=== PATIENT | male | born 1975 | race Caucasian/White ===

== ENCOUNTER 2024-06-10 08:45 | Outpatient (REF) | payer BC, SELFPAY ==
[2024-06-10 09:29] LABS: Basophils Percent Auto 0.3 % (0-2); Eosinophils Absolute Auto 0.3 X10*3/uL (0.0-0.4); Eosinophils Percent Auto 4.2 % (0-4); Hematocrit 44.1 % (42.0-52.0); Hemoglobin 16.3 g/dl (14.0-18.0); Imm Gran Abs Auto 0.02 X10*3/uL (0.00-0.03); Imm Gran Pct Auto 0.3 % (0.0-0.4); Lymphocytes Absolute Auto 0.7 X10*3/uL (1.2-4.9); Lymphocytes Percent Auto 10.7 % (20-40); MANUAL DIFF FLAG NO; Mean Corpuscular Hemoglobin 30.9 pg (27.0-33.0); Mean Corpuscular Volume 83.5 fL (80.0-98.0); Mean Platelet Volume 10.1 fL (9.4-12.4); Monocytes Absolute Auto 0.6 X10*3/uL (0.1-1.2); Neutrophils Percent Auto 75.5 % (45-73); Platelet Count 206 X10*3/uL (160-400); Red Blood Count 5.28 X10*6/uL (4.60-5.80); Red Cell Distribution Width 12.1 % (11.0-16.0); White Blood Count 6.7 X10*3/uL (4.8-10.8)
[2024-06-10 10:56] LABS: Ferritin 380 ng/mL (20-250)
== END 2024-06-10 08:46 | disposition home or self-care (01) ==
LOC: HO.BBR 08:45
PROVIDERS: PCP Internal Medicine; Visit Provider Internal Medicine
DX: E83.110 Hereditary hemochromatosis (principal)
CPT/HCPCS: 36415; 82728; 85025

== ENCOUNTER 2024-08-08 08:28 | Outpatient (REF) | payer BC, SELFPAY ==
[2024-08-08 09:45] LABS: MANUAL DIFF FLAG NO
[2024-08-08 09:46] LABS: Basophils Percent Auto 0.1 % (0-2); Eosinophils Absolute Auto 0.2 X10*3/uL (0.0-0.4); Eosinophils Percent Auto 2.3 % (0-4); Hematocrit 46.8 % (42.0-52.0); Imm Gran Abs Auto 0.05 X10*3/uL (0.00-0.03); Imm Gran Pct Auto 0.5 % (0.0-0.4); Lymphocytes Absolute Auto 0.5 X10*3/uL (1.2-4.9); Lymphocytes Percent Auto 4.8 % (20-40); Mean Corpuscular HGB Conc 36.3 g/dl (31.0-36.0); Mean Corpuscular Hemoglobin 30.8 pg (27.0-33.0); Mean Corpuscular Volume 84.8 fL (80.0-98.0); Mean Platelet Volume 11.1 fL (9.4-12.4); Monocytes Absolute Auto 0.8 X10*3/uL (0.1-1.2); Monocytes Percent Auto 7.1 % (2-11); Neutrophils Percent Auto 85.2 % (45-73); Platelet Count 234 X10*3/uL (160-400); Red Blood Count 5.52 X10*6/uL (4.60-5.80); Red Cell Distribution Width 12.3 % (11.0-16.0); White Blood Count 10.6 X10*3/uL (4.8-10.8)
[2024-08-08 10:21] LABS: Ferritin 364 ng/mL (20-250)
== END 2024-08-08 08:29 | disposition home or self-care (01) ==
LOC: HO.BBR 08:28
PROVIDERS: PCP Internal Medicine; Visit Provider Internal Medicine
DX: E83.110 Hereditary hemochromatosis (principal)
CPT/HCPCS: 36415; 82728; 85025

== ENCOUNTER 2024-09-12 08:01 | Outpatient (REF) | payer BC, SELFPAY ==
[2024-09-12 08:58] LABS: MANUAL DIFF FLAG NO
[2024-09-12 09:23] LABS: Basophils Percent Auto 0.2 % (0-2); Eosinophils Absolute Auto 0.2 X10*3/uL (0.0-0.4); Eosinophils Percent Auto 3.1 % (0-4); Hematocrit 43.3 % (42.0-52.0); Hemoglobin 15.2 g/dl (14.0-18.0); Imm Gran Abs Auto 0.02 X10*3/uL (0.00-0.03); Imm Gran Pct Auto 0.3 % (0.0-0.4); Lymphocytes Absolute Auto 0.4 X10*3/uL (1.2-4.9); Lymphocytes Percent Auto 6.9 % (20-40); Mean Corpuscular HGB Conc 35.1 g/dl (31.0-36.0); Mean Corpuscular Hemoglobin 29.4 pg (27.0-33.0); Mean Corpuscular Volume 83.8 fL (80.0-98.0); Mean Platelet Volume 10.9 fL (9.4-12.4); Monocytes Absolute Auto 0.5 X10*3/uL (0.1-1.2); Monocytes Percent Auto 8.3 % (2-11); Neutrophils Absolute Auto 5.2 x10*3/uL (2.0-8.3); Neutrophils Percent Auto 81.2 % (45-73); Platelet Count 227 X10*3/uL (160-400); Red Blood Count 5.17 X10*6/uL (4.60-5.80); Red Cell Distribution Width 12.4 % (11.0-16.0); White Blood Count 6.4 X10*3/uL (4.8-10.8)
[2024-09-12 11:12] LABS: Ferritin 298 ng/mL (20-250)
== END 2024-09-12 08:02 | disposition home or self-care (01) ==
LOC: HO.BBR 08:01
PROVIDERS: PCP Internal Medicine; Visit Provider Internal Medicine
DX: E83.110 Hereditary hemochromatosis (principal)
CPT/HCPCS: 36415; 82728; 85025

== ENCOUNTER 2024-10-17 08:16 | Outpatient (REF) | payer BC, SELFPAY | END 2024-10-17 08:17 | disposition home or self-care (01) | LOC: HO.BBR 08:16 | PROVIDERS: PCP Internal Medicine; Visit Provider Internal Medicine | DX: Z13.89 Encounter for screening for other disorder (principal) ==

== ENCOUNTER 2024-11-14 08:03 | Outpatient (REF) | payer BC, SELFPAY ==
--- OUTSIDE RECORDS SUMMARY | 2024-11-14 08:08 | XMS_ITS | Clinical Summary ---
Author Organization [facility] Address [address] [place] [address] Care Team Providers Care Manager Medicaid Name Role Phone Unavailable Primary Care Provider Unavailabl e Social History Tobacco Use Types Packs/Day Years Used Date Smoking Tobacco: Never Assessed Sex and Gender Information Value Date Recorded Sex Assigned at Not on file Gender Identity Not on file Sexual Orientation Not on file Plan of Treatment Health Maintenance Due Date Last Done Comments Hepatitis B Vaccines (1 of 3 - 3-dose series) 1976 Hepatitis C Screening 1976 COVID-19 Vaccine (#1) 1976 Depression Screening 1988 Preventative Health Evaluation 1994 DTap / Tdap / Td (1 - Tdap) 1995 Colon Cancer Screening (Colonoscopy) 2021 Influenza Vaccine (#1) 2024 Pneumococcal Vaccine Aged Out No long er eligible based on patient's age to complete this topic RSV Ped < 20 months Aged Out No longe r eligible based on patient's age to complete this topic
--- OUTSIDE RECORDS SUMMARY | 2024-11-14 08:08 | XMS_ITS | Encounter Summary ---
Author Organization [facility] Address [address] [place] [address] Care Team Providers Care Food Service Utility Worker Name Role Phone Unknown Primary Care Provider [phone] -[phone] Amanda Bautista MD Unavailable Navin Fountain MD Unavailable Juan J Wright MD Unavailable Amanda Bautista MD Primary Care Provider Encounter Details Date Type Department Care Team (Late st Contact Info) Description 08/26/2024 Scanned Document [facility] PRIMARY CARE SCAN Primary Care, Scan Social History Tobacco Use Types Packs/Day Years Used Date Smoking Tobacco: Former Sex and Gender Information Value Date Recorded Sex Assigned at Male 04/29/2024 9:53 AM EDT Gender Identity Male 04/29/2024 9:53 AM EDT Sexual Orientation Asexual 04/29/2024 9: 53 AM EDT documented as of this encounter Plan of Treatment Upcoming Encounters Date Type Department Care Team (Late st Contact Info) Description 03/05/2025 8:30 AM EDT Office Visit [facility] Cardiology [address] [place] [phone] Juan J Wright MD [address] [place] [address] [place] [address] [phone] documented as of this encounter Visit Diagnoses Not on filedocumented in this encounter Care Teams Food Service Utility Worker Relationship Specialty Start Date End Date Unknown Unknow Provider Address PCP - General 09/24/20 10/06/24 Amanda Bautista MD [address] [place] [address] PCP - General Internal Medicine 10/07/24 Amanda Bautista MD [address] [place] [address] Internal Medicine 10/07/24 10/07/24 Navin Fountain MD [address], [place] [address] Referring Provider 10/07/24 Juan J Wright MD [address] [place] [facility] [address] [place] [address] Cardiovascular Disease 10/07/24 documented as of this encounter
--- OUTSIDE RECORDS SUMMARY | 2024-11-14 08:08 | XMS_ITS ---
Author Name [facility] Organization Unknown History of Medication Use Medication Directions Dispensed Refills Start Date End Date Stat us calcium carbonate-vitamin D (OSCAL) 500 mg-200 unit Tab tablet Take 1 tablet by mouth. 06/26/2021 10/07/2024 aborted aspirin enteric coated (ECOTRIN LOW STRENGTH) 81 MG EC tablet Take 1 tablet (81 mg total) by mouth daily. active propranolol (INDERAL) 20 MG tablet Take 1 tablet (20 mg total) by mouth 2 (two) times a day. active rosuvastatin (CRESTOR) 20 MG tablet Take 1 tablet (20 mg total) by mouth daily. 03/18/2024 active lamoTRIgine (LaMICtal) 25 MG tablet Take 1 tablet (25 mg total) by mouth. 06/26/2021 10/07/2024 aborted OMEPRAZOLE PO TAKE 1 CAPSULE BY MOUTH EVERY DAY 06/07/2021 10/07/2024 aborted Problems Problem Status Onset Date Problem Type Date of Resoluti on Source Coronary arteriosclerosis active 2024-10-06 ProblemAct [facility] Obstructive sleep apnea syndrome active 2024-10-06 ProblemAct [facility] Essential hypertension active 2024-10-06 ProblemAct [facility] S/P CABG x 1 active 2024-10-06 ProblemAct [facility] PVC (premature ventricular contraction) active 2024-10-07 ProblemAct [facility] Pericardial constriction active 2024-10-06 ProblemAct [facility] Mixed hyperlipidemia active 2024-10-06 ProblemAct [facility]
--- OUTSIDE RECORDS SUMMARY | 2024-11-14 08:08 | XMS_ITS | Encounter Summary ---
Author Organization [facility] Address [address] [place] [address] Care Team Providers Care Farm Owner Operator Name Role Phone Unknown Primary Care Provider [phone] -[phone] Amanda Bautista MD Unavailable Navin Fountain MD Unavailable Juan J Wright MD Unavailable Amanda Bautista MD Primary Care Provider [phone] Encounter Details Date Type Department Care Team (Late st Contact Info) Description 07/17/2021 Scanned Document [facility] HEMATOLOGY SCAN Hematology And Oncology, Scan Social History Tobacco Use Types Packs/Day [...] Description 03/05/2025 8:30 AM EDT Office Visit [facility] Cardiology [address] [place] [phone] Juan J Wright MD [address] [place] [address] [place] [address] documented as of this encounter Visit Diagnoses Not on filedocumented in this encounter Care Teams Farm Owner Operator Relationship Specialty Start Date End Date Unknown Unknow Provider Address PCP - General 09/24/20 10/06/24 Amanda Bautista MD [address] [place] [address] PCP - General Internal Medicine 10/07/24 Amanda Bautista MD [address] [place] [address] Internal Medicine 10/07/24 10/07/24 Navin Fountain MD [address], [place] [address] Referring Provider 10/07/24 Juan J Wright MD [address] [place] [facility] [address] [place] [address] Cardiovascular Disease 10/07/24 documented as of this encounter
--- OUTSIDE RECORDS SUMMARY | 2024-11-14 08:08 | XMS_ITS | Clinical Summary ---
Author Organization [facility], Address [address] [place] [address] Phone Care Team Providers Care Pastoral Worker Name Role Phone Celi Bautista MD Primary Care Provider [phone] Medications colchicine 0.6 MG tablet TAKE 1 TABLET BY MOUTH TWO TIMES A DAY 12/10/2020 Active furosemide (LASIX) 80 MG tablet 11/19/2020 Active indomethacin (INDOCIN) 50 MG capsule TAKE 1 CAPSULE BY MOUTH TWO TIMES A DAY 12/24/2020 Active lamoTRIgine (LaMICtal) 200 MG tablet 08/08/2011 Active lamoTRIgine (LaMICtal) 200 MG tablet 09/28/2020 Active metoprolol succinate XL (TOPROL-XL) 25 MG 24 hr tablet Take 25 mg by mouth 1 (one) time each day 12/10/2020 Active omeprazole (PriLOSEC) [address] capsule Take by mouth 1 (one) time each day 12/24/2020 Active ondansetron (ZOFRAN) 8 MG tablet TAKE 1 TABLET BY MOUTH EVERY 8 HOURS NEEDED FOR NAUSEA AND VOMITING 12/15/2020 Active predniSONE (DELTASONE) 10 MG tablet TAKE 3 TABLETS BY MOUTH EVERY DAY FOR 60 DAYS 12/15/2020 Active rOPINIRole XL (REQUIP XL) 2 MG 24 hr tablet TAKE 1 TABLET BY MOUTH DAILY AT BEDTIME 11/14/2020 Active spironolactone (ALDACTONE) 25 MG tablet Take 25 mg by mouth 1 (one) time each day 12/24/2020 Active torsemide (DEMADEX) 20 MG tablet 12/28/2020 Active ALPRAZolam (XANAX) 1 MG tablet 01/11/2021 Active metOLazone (ZAROXOLYN) 5 MG tablet Take 1 tablet (5 mg total) by mouth 2 (two) times a week 16 tablet 3 02/24/2021 Active Active Problems Problem Noted Date Diagnosed Date Acute nontraumatic kidney injury 12/29/2020 Social History Tobacco Use Types Packs/Day Years Used Date Smoking Tobacco: Never Assessed Sex and Gender Information Value Date Recorded Sex Assigned at Male 12/06/2020 11:47 AM EDT Legal Sex Male 11:03 AM EST Gender Identity Male 12/06/2020 11:47 AM EDT Sexual Orientation Straight 12/06/2020 11 :48 AM EDT Plan of Treatment Health Maintenance Due Date Last Done Comments Hepatitis B Vaccine (1 of 3 - 19+ 3-dose series) 1995 Influenza Vaccine (#1) 2024 Pneumococcal Vaccine: Pediat rics (0 to 5 Years) and At-Risk Patients (6 to 64 Years) Aged Out No longer eligi ble based on patient's age to complete this topic Insurance Care Teams Pastoral Worker Relationship Specialty Start Date End Date Celi Bautista MD [address] [place] [address] PCP - General Internal Medicine 12/02/20
--- OUTSIDE RECORDS SUMMARY | 2024-11-14 08:08 | XMS_ITS | Encounter Summary ---
Author Organization [facility] Address [address] [place] [address] Care Team Providers Care Doctor Of Podiatry Name Role Phone Unknown Primary Care Provider [phone] -[phone] Amanda Bautista MD Unavailable Navin Fountain MD Unavailable Juan J Wright MD Unavailable [phone] Amanda Bautista MD Primary Care Provider [phone] Encounter Details Date Type Department Care Team (Late st Contact Info) Description 06/05/2024 Scanned Document [facility] CARDIOLOGY SCAN Cardiology, Scan Social History Tobacco Use Types Packs/Day [...] Description 03/05/2025 8:30 AM EDT Office Visit [facility] Cardiology [address] [place] [phone] Juan J Wright MD [address] [place] [address] [place] [address] [phone] documented as of this encounter Visit Diagnoses Not on filedocumented in this encounter Care Teams Doctor Of Podiatry Relationship Specialty Start Date End Date Unknown Unknow Provider Address PCP - General 09/24/20 10/06/24 Amanda Bautista MD [address] [place] [address] PCP - General Internal Medicine 10/07/24 Amanda Bautista MD [address] [place] [address] Internal Medicine 10/07/24 10/07/24 Navin Fountain MD [facility] [address], [place] [address] Referring Provider 10/07/24 Juan J Wright MD [address] [place] [facility] [address] [place] [address] Cardiovascular Disease 10/07/24 documented as of this encounter
--- OUTSIDE RECORDS SUMMARY | 2024-11-14 08:08 | XMS_ITS | Encounter Summary ---
Author Organization [address] [address] Care Team Providers Care Soil Conservationist Name Role Phone Pack, Navin MARTINEZ Unavailable Juan J Wright MD Unavailable [phone] Amanda Bautista MD Primary Care Provider [phone] Encounter Details Date Type Department Care Team (Late st Contact Info) Description 10/15/[address] [facility] Cardiology [address] [place] [phone] Cardiology, Scan Social History Tobacco Use Types [...] Description 03/05/2025 8:30 AM EDT Office Visit [facility] Cardiology [address] [place] [phone] Juan J Wright MD [address] [place] [address] [place] [address] documented as of this encounter Procedures Procedure Name Priority Date/Time Associated Diagnosis Comments EVENT MONITOR REPORT Routine 08/12/2024 9:17 AM EST documented in this encounter Results * EVENT MONITOR REPORT (08/12/2024 9:17 AM EST) Anatomical Region Laterality Modality Other Scan Cardiology HX AMB PROCEDURES documented in this encounter Visit Diagnoses Not on filedocumented in this encounter Care Teams Soil Conservationist Relationship Specialty Start Date End Date Amanda Bautista MD [address] [place] [address] PCP - General Internal Medicine 10/07/24 Navin Fountain MD [address] [address] Referring Provider 10/07/24 Juan J Wright MD [address] [place] [facility] [address] [place] [address] Cardiovascular Disease 10/07/24 documented as of this encounter
--- OUTSIDE RECORDS SUMMARY | 2024-11-14 08:08 | XMS_ITS | Encounter Summary ---
Author Organization [facility] Address [address] [place] [address] Care Team Providers Care Protective Services Officer Name Role Phone Unknown Primary Care Provider [phone] -[phone] Amanda Bautista MD Unavailable Navin Fountain MD Unavailable Juan J Wright MD Unavailable Amanda Bautista MD Primary Care Provider [phone] Encounter Details Date Type Department Care Team (Late st Contact Info) Description 09/08/2024 Scanned Document [facility] HEMATOLOGY SCAN Hematology And Oncology, Scan Social [...] 03/05/2025 8:30 AM EDT Office Visit [facility] Cardiology [address] [place] [phone] Juan J Wright MD [address] [place] [address] [place] [address] [phone] documented as of this encounter Visit Diagnoses Not on filedocumented in this encounter Care Teams Protective Services Officer Relationship Specialty Start Date End Date Unknown Unknow Provider Address PCP - General 09/24/20 10/06/24 Amanda Bautista MD [address] [place] [address] PCP - General Internal Medicine 10/07/24 Amanda Bautista MD [address] [place] [address] Internal Medicine 10/07/24 10/07/24 Navin Fountain MD [address], [place] [address] Referring Provider 10/07/24 Juan J Wright MD [address] [place] [facility] [address] [place] [address] Cardiovascular Disease 10/07/24 documented as of this encounter
--- OUTSIDE RECORDS SUMMARY | 2024-11-14 08:08 | XMS_ITS | Clinical Summary ---
Author Organization [facility] Address [address] [place] [address] Care Team Providers Care Partridge Farmer Name Role Phone Pack, Navin MARTINEZ Unavailable Juan J Wright MD Unavailable [phone] Amanda Bautista MD Primary Care Provider Allergies No known active allergies Medications Medication Sig Dispensed Refills Start Date End Date Status Zepbound 12.5 MG/0.5ML pen-injector Inject 1 Pen (12.5 mg total) under the skin once a week. Active rosuvastatin (CRESTOR) 20 MG tablet Take 1 tablet (20 mg total) by mouth daily. 03/18/2024 Active propranolol (INDERAL) 20 MG tablet Take 1 tablet (20 mg total) by mouth 2 (two) times a day. Active famotidine (Pepcid) 40 MG tablet Take 1 tablet (40 mg total) by mouth nightly. Active aspirin enteric coated (ECOTRIN LOW STRENGTH) 81 MG EC tablet Take 1 tablet (81 mg total) by mouth daily. Active Active Problems Problem Noted Date Diagnosed Date PVC (premature ventricular contraction) 10/07/19 Pericardial constriction 10/06/2024 Coronary arteriosclerosis 10/06/2024 S/P CABG x 1 10/06/2024 Essential hypertension 10/06/2024 Obstructive sleep apnea syndrome 10/06/2024 Mixed hyperlipidemia 10/06/2024 Encounters Date Type Department Care Team Description 10/15/2024 Orders Only [facility] Cardiology [address] [place] [phone] Cardiology, Scan 10/07/2024 4:00 PM EST Consult [facility] Cardiology [address] [place] [phone] Juan J Wright MD Coronary arteriosclerosis (Primary Dx); Essential hypertension; Obstructive sleep apnea syndrome; Pericardial constriction; S/P CABG x 1; Mixed hyperlipidemia; PVC (premature ventricular contraction) 10/07/2024 Travel 09/09/2024 Scanned Document [facility] HEMATOLOGY SCAN Hematology And Oncology, Scan 09/08/2024 Scanned Document [facility] HEMATOLOGY SCAN Hematology And Oncology, Scan 08/26/2024 Scanned Document [facility] PRIMARY CARE SCAN Primary Care, Scan from Last 3 Months Social History Tobacco Use Types Packs/Day Years Used Date Smoking Tobacco: Former Sex and Gender Information Value Date Recorded Sex Assigned at Male 04/29/2024 9:53 AM EDT Gender Identity Male 04/29/2024 9:53 AM EDT Sexual Orientation Asexual 04/29/2024 9: 53 AM EDT Last Filed Vital Signs Vital Sign Reading Time Taken Comments Blood Pressure 140/68 10/07/2024 3:45 PM EST Pulse 85 10/07/2024 3:45 PM EST Temperature 36.5 ??C (97.7 ??F) 07/31/2021 11:[address] Respiratory Rate 20 07/31/2021 11:17 AM EST Oxygen Saturation 95% 10/07/2024 3:45 PM EST Inhaled Oxygen Concentration - - Weight 130 kg (287 lb 9.6 oz) 10/07/2024 3:45 PM EST Height 185.4 cm (6' 1 ) 10/07/2024 3:45 PM EST Body Mass Index 37.94 10/07/2024 3:45 PM EST Plan of Treatment Upcoming Encounters Date Type Department Care Team (Late st Contact Info) Description 03/05/2025 8:30 AM EDT Office Visit [facility] Cardiology [address] [place] [phone] Juan J Wright MD [address] [place] [address] [place] [address] Health Maintenance Due Date Last Done Comments Hepatitis C Virus Screening 1976 HIV Screening 1989 DTaP/Tdap/Td Vaccines (1 - Tdap) 1995 Hepatitis B Vaccines (1 of 3 - 19+ 3-dose series) 1995 Pneumococcal Vaccine: Pediat tiara (0-5 Years) and At-Risk Patients (6 to 49 Years) (1 of 2 - PCV) 1995 Colonoscopy 2021 Influenza Vaccine 04/24/2024 07/17/2021, , 08/29/2019, Additional history exists COVID-19 Vaccine (3 - 2023-2 5 season) 2024 01/28/2021, 01/06/2021 Procedures Procedure Name Priority Date/Time Associated Diagnosis Comments ECG 12-LEAD Routine 10/07/2024 3:53 PM EST Coronary arteriosclerosis from Last 3 Months Results * ECG 12 lead (10/07/2024 3:53 PM EST) [facility] Ventricular rate 83 BPM EKG [facility] Atrial rate 83 BPM EKG [facility] P-R interval 176 ms [facility] QRS duration 112 ms [facility] Q-T interval 410 ms [facility] QTC calculation (Bazett) 481 ms G [facility] P axis 60 degrees [facility] R axis 30 degrees [facility] T axis 78 degrees [facility] 10/07/2024 3:53 PM EST Narrative EKG [facility] - 10/07/2024 4:07 PM EST Normal sinus rhythm Possible Left atrial enlargement Minimal voltage criteria for LVH, may be normal variant ( [place] product ) Non-specific ST-t wave changes Abnormal ECG No previous ECGs available Confirmed by MD Wright Jordan ([id number]) on 10/07/2024 4:07:54 PM Procedure Note Juan J Wrgiht MD - 10/07/2024 Normal sinus rhythm Possible Left atrial enlargement Minimal voltage criteria for LVH, may be normal variant ( [place] product) Non-specific ST-t wave changes Abnormal ECG No previous ECGs available Confirmed by MD Wright Jordan ([id number]) on 10/07/2024 4:07:54 PM Juan J Wright MD ECG ORDERABLES EKG [facility] from Last 3 Months Care Teams Partridge Farmer Relationship Specialty Start Date End Date Amanda Bautista MD [address] [place] [address] PCP - General Internal Medicine 10/07/24 Navin Fountain MD [facility] [address] [address] Referring Provider 10/07/24 Juan J Wright MD [address] [place] [address] Cardiovascular Disease 10/07/24
--- OUTSIDE RECORDS SUMMARY | 2024-11-14 08:08 | XMS_ITS | Encounter Summary ---
Author Organization [facility] Address [address] [place] [address] Care Team Providers Care Metal Reclamation Kettle Tender Name Role Phone Unknown Primary Care Provider [phone] -[phone] Amanda Bautista MD Unavailable Navin Fountain MD Unavailable Juan J Wright MD Unavailable Amanda Bautista MD Primary Care Provider [phone] Encounter Details Date Type Department Care Team (Late st Contact Info) Description 09/09/2024 Scanned Document [facility] HEMATOLOGY SCAN Hematology And Oncology, Scan Social [...] Description 03/05/2025 8:30 AM EDT Office Visit [facility] Cardiology [address] [place] [phone] Juan J Wright MD [address] [place] [address] [place] [phone] documented as of this encounter Visit Diagnoses Not on filedocumented in this encounter Care Teams Metal Reclamation Kettle Tender Relationship Specialty Start Date End Date Unknown Unknow Provider Address PCP - General 09/24/20 10/06/24 Amanda Bautista MD [address] [place] [address] PCP - General Internal Medicine 10/07/24 Amanda Bautista MD [address] [place] [address] Internal Medicine 10/07/24 10/07/24 Navin Fountain MD [address], [place] [address] Referring Provider 10/07/24 Juan J Wright MD [address] [facility] [address] [place] [address] Cardiovascular Disease 10/07/24 documented as of this encounter
--- OUTSIDE RECORDS SUMMARY | 2024-11-14 08:08 | XMS_ITS | Encounter Summary ---
Author Organization [facility] Address [address] [place] [address] Care Team Providers Care Flow Floor Attendant Name Role Phone Unknown Primary Care Provider +1-000-000 -0000 Amanda Bautista MD Unavailable Navin Fountain MD Unavailable Juan J Wright MD Unavailable [phone] Amanda Bautista MD Primary Care Provider Encounter Details Date Type Department Care Team (Late st Contact Info) Description 06/05/2024 Scanned Document [facility] CARDIOLOGY SCAN Cardiology, Scan Social History Tobacco [...] Description 03/05/2025 8:30 AM EDT Office Visit [facility] Cardiology [address] [place] [phone] Juan J Wright MD [address] [place] [address] [place] [phone] documented as of this encounter Visit Diagnoses Not on filedocumented in this encounter Care Teams Flow Floor Attendant Relationship Specialty Start Date End Date Unknown Unknow Provider Address PCP - General 09/24/20 10/06/24 Amanda Bautista MD [address] [place] [address] PCP - General Internal Medicine 10/07/24 Amanda Bautista MD [address] [place] [address] Internal Medicine 10/07/24 10/07/24 Navin Fountain MD [facility] [address], [place] [address] Referring Provider 10/07/24 Juan J Wright MD [address] [facility] [address] [place] [address] Cardiovascular Disease 10/07/24 documented as of this encounter
[2024-11-14 08:18] LABS: MANUAL DIFF FLAG NO
[2024-11-14 08:19] LABS: Basophils Percent Auto 0.2 % (0-2); Eosinophils Absolute Auto 0.2 X10*3/uL (0.0-0.4); Eosinophils Percent Auto 2.9 % (0-4); Hematocrit 45.1 % (42.0-52.0); Hemoglobin 16.2 g/dl (14.0-18.0); Imm Gran Abs Auto 0.02 X10*3/uL (0.00-0.03); Imm Gran Pct Auto 0.3 % (0.0-0.4); Lymphocytes Absolute Auto 0.5 X10*3/uL (1.2-4.9); Lymphocytes Percent Auto 7.9 % (20-40); Mean Corpuscular HGB Conc 35.9 g/dl (31.0-36.0); Mean Corpuscular Hemoglobin 29.5 pg (27.0-33.0); Mean Corpuscular Volume 82.1 fL (80.0-98.0); Mean Platelet Volume 10.5 fL (9.4-12.4); Monocytes Absolute Auto 0.5 X10*3/uL (0.1-1.2); Monocytes Percent Auto 7.9 % (2-11); Neutrophils Percent Auto 80.8 % (45-73); Platelet Count 227 X10*3/uL (160-400); Red Blood Count 5.49 X10*6/uL (4.60-5.80); Red Cell Distribution Width 12.7 % (11.0-16.0); White Blood Count 6.2 X10*3/uL (4.8-10.8)
[2024-11-14 09:16] LABS: Ferritin 169 ng/mL (20-250)
== END 2024-11-14 08:04 | disposition home or self-care (01) ==
LOC: HO.BBR 08:03
PROVIDERS: PCP Internal Medicine; Visit Provider Internal Medicine
DX: E83.110 Hereditary hemochromatosis (principal)
CPT/HCPCS: 36415; 82728; 85025

== ENCOUNTER 2024-12-11 08:32 | Outpatient (REF) | payer BC, SELFPAY ==
[2024-12-11 10:24] LABS: Ferritin 164 ng/mL (20-250)
== END 2024-12-11 08:33 | disposition home or self-care (01) ==
LOC: HO.BBR 08:32
PROVIDERS: PCP Internal Medicine; Visit Provider Internal Medicine
DX: E83.110 Hereditary hemochromatosis (principal)
CPT/HCPCS: 36415; 82728

== ENCOUNTER 2025-01-16 08:29 | Outpatient (REF) | payer BC, SELFPAY ==
--- OUTSIDE RECORDS SUMMARY | 2025-01-16 08:32 | XMS_ITS | Encounter Summary ---
Author Organization [facility] Address [address] [place] [address] Care Team Providers Care Solution Advisor Name Role Phone Unknown Primary Care Provider +[phone] -0000 Amanda Bautista MD Unavailable Navin Fountain MD Unavailable Juan J Wright MD Unavailable [phone] Amanda Bautista MD Primary Care Provider Encounter Details Date Type Department Care Team (Late st Contact Info) Description 09/08/2024 Scanned Document [facility] HEMATOLOGY SCAN Hematology And Oncology, Scan Social History Tobacco Use Types Packs/Day Years Used Date Smoking Tobacco: Former Sex and Gender Information Value Date Recorded Sex Assigned at Male 04/29/2024 9:53 AM EDT Legal Sex Male 11:45 AM EDT Gender Identity Male 04/29/2024 9:53 AM EDT Sexual Orientation Asexual 04/29/2024 9: 53 AM EDT documented as of this encounter Plan of Treatment Upcoming Encounters Date Type Department Care Team (Late st Contact Info) Description 03/05/2025 8:30 AM EDT Office Visit [facility] Cardiology [address] [place] [address] [phone] Juan J Wright MD [address] [place] [address] [address] [place], [place] [phone] documented as of this encounter Visit Diagnoses Not on filedocumented in this encounter Care Teams Solution Advisor Relationship Specialty Start Date End Date Unknown Unknow Provider Address PCP - General 09/24/20 10/06/24 Amanda Bautista MD [address] [place] [address] PCP - General Internal Medicine 10/07/24 Amanda Bautista MD [address] [place] [address] Internal Medicine 10/07/24 10/07/24 Navin Fountain MD [address] [address] Referring Provider 10/07/24 Juan J Wright MD 100 [facility] [address] [place] [address] Cardiovascular Disease 10/07/24 documented as of this encounter
--- OUTSIDE RECORDS SUMMARY | 2025-01-16 08:32 | XMS_ITS | Encounter Summary ---
Author Organization [facility] Address [address] [place] [address] Care Team Providers Care Bird Tender Name Role Phone Unknown Primary Care Provider +1-000-000 -0000 Amanda Bautista MD Unavailable Navin Fountain MD Unavailable Juan J Wright MD Unavailable Amanda Bautista MD Primary Care Provider [phone] Encounter Details Date Type Department Care Team (Late st Contact Info) Description 07/17/2021 Scanned Document [facility] HEMATOLOGY SCAN Hematology And Oncology, Scan Social [...] Description 03/05/2025 8:30 AM EDT Office Visit [facility] Cardiology [address] [place] [address] [phone] Juan J Wright MD [address] [place] [address] [address] [place], [place] [phone] documented as of this encounter Visit Diagnoses Not on filedocumented in this encounter Care Teams Bird Tender Relationship Specialty Start Date End Date Unknown Unknow Provider Address PCP - General 09/24/20 10/06/24 Amanda Bautista MD [address] [place] [address] PCP - General Internal Medicine 10/07/24 Amanda Bautista MD [address] [place] [address] Internal Medicine 10/07/24 10/07/24 Navin Fountain MD [address], [place] [address] Referring Provider 10/07/24 Juan J Wright MD 100 [facility] [address] [place] [address] Cardiovascular Disease 10/07/24 documented as of this encounter
--- OUTSIDE RECORDS SUMMARY | 2025-01-16 08:32 | XMS_ITS | Clinical Summary ---
Author Organization [facility] Address [address] [place] [address] Care Team Providers Care Director Of Medicare Name Role Phone Unavailable Primary Care Provider [...]
--- OUTSIDE RECORDS SUMMARY | 2025-01-16 08:32 | XMS_ITS | Clinical Summary ---
Author Organization [facility], Address [address] [place] [address] Phone Care Team Providers Care Licensed Nursing Assistant Name Role Phone Celi Bautista MD Primary Care Provider [phone] Medications colchicine 0.6 MG tablet TAKE 1 [...] - 19+ 3-dose series) 1995 Influenza Vaccine (Season Ended) 2025 Pneumococcal Vaccine: Peds ( 0 to 5 Years) and At-Risk Patients (6 to 49 Years) Aged Out No longer eligible b ased on patient's age to complete this topic Insurance Care Teams Licensed Nursing Assistant Relationship Specialty Start Date End Date Celi Bautista MD [address] [place] [address] PCP - General Internal Medicine 12/02/20
--- OUTSIDE RECORDS SUMMARY | 2025-01-16 08:32 | XMS_ITS | Encounter Summary ---
Author Organization [facility] Address [address] [place] [address] Care Team Providers Care Crepe Sole Scourer Name Role Phone Unknown Primary Care Provider +1-000-000 -0000 Amanda Bautista MD Unavailable Navin Fountain MD Unavailable Juan J Wright MD Unavailable Amanda Bautista MD Primary Care Provider [phone] Encounter Details Date Type Department Care Team (Late st Contact Info) Description 06/05/2024 Scanned Document [facility] CARDIOLOGY SCAN Cardiology, Scan Social History Tobacco [...] 8:30 AM EDT Office Visit [facility] [place] Cardiology [address] [place] [address] [phone] Juan J Wright MD 100 [facility] [address] [place], [place] [phone] documented as of this encounter Visit Diagnoses Not on filedocumented in this encounter Care Teams Crepe Sole Scourer Relationship Specialty Start Date End Date Unknown Unknow Provider Address PCP - General 09/24/20 10/06/24 Amanda Bautista MD [address] [place] [address] PCP - General Internal Medicine 10/07/24 Amanda Bautista MD [address] [place] [address] Internal Medicine 10/07/24 10/07/24 Navin Fountain MD [address] [address] Referring Provider 10/07/24 Juan J Wright MD [address] [facility] [address] [place] [address] Cardiovascular Disease 10/07/24 documented as of this encounter
--- OUTSIDE RECORDS SUMMARY | 2025-01-16 08:33 | XMS_ITS | Encounter Summary ---
Author Organization [facility] Address [address] [place] [address] Care Team Providers Care Speech Writer Name Role Phone Unknown Primary Care Provider +1-000-000 -0000 Amanda Bautista MD Unavailable Navin Fountain MD Unavailable Juan J Wright MD Unavailable [phone] Amanda Bautista MD Primary Care Provider Encounter Details Date Type Department Care Team (Late st Contact Info) Description 09/09/2024 Scanned Document [facility] HEMATOLOGY SCAN Hematology And Oncology, Scan [...] Description 03/05/2025 8:30 AM EDT Office Visit [facility] Cardiology [address] [place] [address] [phone] Juan J Wright MD [address] [place] [address] [address] [place], [place] [phone] documented as of this encounter Visit Diagnoses Not on filedocumented in this encounter Care Teams Speech Writer Relationship Specialty Start Date End Date Unknown Unknow Provider Address PCP - General 09/24/20 10/06/24 Amanda Bautista MD [address] [place] [address] PCP - General Internal Medicine 10/07/24 Amanda Bautista MD [address] [place] [address] Internal Medicine 10/07/24 10/07/24 Navin Fountain MD [address] [address] Referring Provider 10/07/24 Juan J Wright MD 100 [facility] [address] [place] [address] Cardiovascular Disease 10/07/24 documented as of this encounter
--- OUTSIDE RECORDS SUMMARY | 2025-01-16 08:33 | XMS_ITS | Clinical Summary ---
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 Essential hypertension 10/06/2024 Obstructive sleep apnea syndrome 10/06/2024 Mixed hyperlipidemia 10/06/2024 Social History Tobacco Use Types Packs/Day Years [...] Description 03/05/2025 8:30 AM EDT Office Visit [facility] Cardiology [address] [place] [phone] Juan J Wright MD [address] [place] [address] [place] [address] Health Maintenance Due Date Last Done Comments [...] , 08/29/2019, Additional history exists COVID-19 Vaccine ( - 2023-2 5 season) 2024 01/28/2021, 01/06/2021 Insurance BLUE CROSS OUT OF STATE - PPO Care Teams Line Service Technician Relationship Specialty Start Date End Date Amanda Bautista MD [address] [place] [address] PCP - General Internal Medicine 10/07/24 Navin Fountain MD [address], [place] [address] Referring Provider 10/07/24 Juan J Wright MD [address] [place] [address] Cardiovascular Disease 10/07/24
--- OUTSIDE RECORDS SUMMARY | 2025-01-16 08:33 | XMS_ITS | Encounter Summary ---
Author Organization [facility] [place] [facility] Address [address] [place] [address] Care Team Providers Care Cardiovascular Disease Specialist Name Role Phone Unknown Primary Care Provider +1-000-000 -0000 Amanda Bautista MD Unavailable Navin Fountain MD Unavailable Juan J Wright MD Unavailable [phone] Amanda Bautista MD Primary Care Provider Encounter Details Date Type Department Care Team (Late st Contact Info) Description 08/26/2024 Scanned Document [facility] PRIMARY CARE SCAN Primary Care, Scan Social [...] Description 03/05/2025 8:30 AM EDT Office Visit [facility] Cardiology [address] [place] [address] [phone] Juan J Wright MD [address] [place] [address] [address] [place], [place] [phone] documented as of this encounter Visit Diagnoses Not on filedocumented in this encounter Care Teams Cardiovascular Disease Specialist Relationship Specialty Start Date End Date Unknown Unknow Provider Address PCP - General 09/24/20 10/06/24 Amanda Bautista MD [address] [place] [address] PCP - General Internal Medicine 10/07/24 Amanda Bautista MD [address] [place] [address] Internal Medicine 10/07/24 10/07/24 Navin Fountain MD [address] [address] Referring Provider 10/07/24 Juan J Wright MD 100 [facility] [address] [place] [address] Cardiovascular Disease 10/07/24 documented as of this encounter
--- OUTSIDE RECORDS SUMMARY | 2025-01-16 08:33 | XMS_ITS | Encounter Summary ---
Author Organization [facility] Address [address] [place] [address] Care Team Providers Care Senior Applications Analyst Name Role Phone Unknown Primary Care Provider +1-000-000 -0000 Amanda Bautista MD Unavailable Navin Fountain MD Unavailable Juan J Wright MD Unavailable [phone] Amanda Bautista MD Primary Care Provider Encounter Details Date Type Department Care Team (Late st Contact Info) Description 06/05/2024 Scanned Document [facility] CARDIOLOGY SCAN Cardiology, Scan Social History Tobacco [...] Description 03/05/2025 8:30 AM EDT Office Visit [facility] Cardiology [address] [place] [phone] Juan J Wright MD 100 [facility] [address] [place], [place] [phone] documented as of this encounter Visit Diagnoses Not on filedocumented in this encounter Care Teams Senior Applications Analyst Relationship Specialty Start Date End Date Unknown Unknow Provider Address PCP - General 09/24/20 10/06/24 Amanda Bautista MD [address] [place] [address] PCP - General Internal Medicine 10/07/24 Amanda Bautista MD [address] [place] [address] Internal Medicine 10/07/24 10/07/24 Navin Fountain MD [address] [address] Referring Provider 10/07/24 Juan J Wright MD 100 [place] [address] [place] [address] Cardiovascular Disease 10/07/24 documented as of this encounter
[2025-01-16 08:48] LABS: MANUAL DIFF FLAG NO
[2025-01-16 08:49] LABS: Basophils Percent Auto 0.3 % (0-2); Eosinophils Absolute Auto 0.3 X10*3/uL (0.0-0.4); Eosinophils Percent Auto 4.3 % (0-4); Hematocrit 43.8 % (42.0-52.0); Hemoglobin 15.7 g/dl (14.0-18.0); Imm Gran Abs Auto 0.02 X10*3/uL (0.00-0.03); Imm Gran Pct Auto 0.3 % (0.0-0.4); Lymphocytes Absolute Auto 0.7 X10*3/uL (1.2-4.9); Lymphocytes Percent Auto 10.4 % (20-40); Mean Corpuscular HGB Conc 35.8 g/dl (31.0-36.0); Mean Corpuscular Hemoglobin 29.2 pg (27.0-33.0); Mean Corpuscular Volume 81.4 fL (80.0-98.0); Mean Platelet Volume 10.6 fL (9.4-12.4); Monocytes Absolute Auto 0.6 X10*3/uL (0.1-1.2); Monocytes Percent Auto 8.8 % (2-11); Neutrophils Absolute Auto 4.9 x10*3/uL (2.0-8.3); Neutrophils Percent Auto 75.9 % (45-73); Platelet Count 231 X10*3/uL (160-400); Red Blood Count 5.38 X10*6/uL (4.60-5.80); Red Cell Distribution Width 12.7 % (11.0-16.0); White Blood Count 6.5 X10*3/uL (4.8-10.8)
[2025-01-16 09:36] LABS: Ferritin 137 ng/mL (20-250)
== END 2025-01-16 08:30 | disposition home or self-care (01) ==
LOC: HO.BBR 08:29
PROVIDERS: PCP Internal Medicine; Visit Provider Internal Medicine
DX: E83.110 Hereditary hemochromatosis (principal)
CPT/HCPCS: 36415; 82728; 85025

== ENCOUNTER 2025-02-19 08:14 | Outpatient (REF) | payer BC, SELFPAY ==
[2025-02-19 08:28] LABS: Basophils Percent Auto 0.1 % (0-2); Eosinophils Absolute Auto 0.3 X10*3/uL (0.0-0.4); Hemoglobin 15.2 g/dl (14.0-18.0); Imm Gran Abs Auto 0.03 X10*3/uL (0.00-0.03); Imm Gran Pct Auto 0.4 % (0.0-0.4); Lymphocytes Absolute Auto 0.7 X10*3/uL (1.2-4.9); Lymphocytes Percent Auto 8.7 % (20-40); MANUAL DIFF FLAG NO; Mean Corpuscular HGB Conc 35.3 g/dl (31.0-36.0); Mean Corpuscular Volume 82.1 fL (80.0-98.0); Mean Platelet Volume 10.2 fL (9.4-12.4); Monocytes Absolute Auto 0.7 X10*3/uL (0.1-1.2); Monocytes Percent Auto 7.9 % (2-11); Neutrophils Absolute Auto 6.6 x10*3/uL (2.0-8.3); Neutrophils Percent Auto 79.9 % (45-73); Platelet Count 225 X10*3/uL (160-400); Red Blood Count 5.24 X10*6/uL (4.60-5.80); Red Cell Distribution Width 12.7 % (11.0-16.0); White Blood Count 8.3 X10*3/uL (4.8-10.8)
[2025-02-19 09:20] LABS: Ferritin 93 ng/mL (20-250)
== END 2025-02-19 08:15 | disposition home or self-care (01) ==
LOC: HO.BBR 08:14
PROVIDERS: PCP Internal Medicine; Visit Provider Internal Medicine
DX: E83.110 Hereditary hemochromatosis (principal)
CPT/HCPCS: 36415; 82728; 85025